=== PATIENT | female | born 1955 | race Two or more races ===

== ENCOUNTER → 2025-08-04 | Outpatient (CLI) | payer MEDICARE, SELFPAY ==
--- NOTE | 2025-08-04 12:20 | XR_ITS ---
Examination: Bone densitometry Date and time of exam: August 04, 2025, 1254 hours INDICATIONS: Menopause age 53, diabetic Technique: Lumbar spine and hip total bone mineralization values of an calculated. Peak reference and age match control results have been displayed. Findings: Lumbar spine total bone mineralization is 1.055 gm/cm2. This is 0.1 standard deviations above peak reference. This is 2.2 standard deviations above age-matched controls. Hip total bone mineralization is 0.795 gm/cm2 This is 1.2 standard deviations below peak reference. This is 1.3 standard deviations above age-matched controls Impression: There is normal mineralization based on lumbar spine measurements. There is osteopenia based on hip measurements Lumbar mineralization is increased 4.7% compared to September 27, 2013 Hip mineralization is decreased 6.2% compared with September 27, 2013
== END | disposition home or self-care (01) ==
PROVIDERS: PCP Physician Assistant; Referring Provider Physician Assistant; Visit Provider Physician Assistant
DX: M85.89 Other specified disorders of bone density and structure, multiple sites (principal)
CPT/HCPCS: 77080